=== PATIENT | male | born 1995 | race Two or more races ===

== ENCOUNTER 2019-03-15 04:26 | Emergency (ER) | payer BC ==
[~2019-03-15] VITALS: Ht 175.3 cm; Wt 83.9 kg
[2019-03-15 04:29] VITALS: BP 108/84
--- NOTE | 2019-03-15 04:29 | NUR ---
Pt bibra fr [facility]TW[facility] Verduzco assisted for etoh intoxication. pt AOX4, afebrile w/ resp even & unlabored, denies any pain w/ nad noted. pt ambulatory w/ steady gait fr gurney to bed, handcuffed by [employer] to bed. Pt refusing to be treated, evaluated, or seen by a physician for medical evaluation.
--- NOTE | 2019-03-15 04:46 | NUR ---
Patient does not wish to proceed with medical care recommended by Dr. Vanegas, refusing any further treatment or evaluation by a physician. Patient given information related to possible complications, up to and including , which could occur as a result of leaving the hospital at this time. Patient verbalizes understanding of risks involved due to leaving against medical advice. Patient has signed AMA form.
--- NOTE | 2019-03-15 05:02 | NUR ---
[employer] officers at bedside talking w/ pt.
== END 2019-03-15 05:27 | disposition left against medical advice (07) ==
LOC: ER 04:26
DX: Z02.89 Encounter for other administrative examinations (principal); F41.9 Anxiety disorder, unspecified